=== PATIENT | male | born 1975 | race Caucasian/White ===

== ENCOUNTER 2017-02-05 09:03 | Emergency (ER) | payer OTHER ==
[~2017-02-05] VITALS: Ht 165.1 cm; Wt 66.0 kg
[~2017-02-05 09:03] MED LIST: DILA100C PO
[2017-02-05 09:08] VITALS: BP 178/92; PULSE 101; RESP 16; TEMP 97.8; O2SAT 95
[2017-02-05] MEDS ORDERED: KEPP10002 PO (09:16)
[2017-02-05] MEDS ORDERED: DILA100C PO (09:16)
[2017-02-05 09:17] VITALS: BP 171/92; PULSE 108; RESP 15; O2SAT 94
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
[2017-02-05] MEDS ORDERED: SODIUM CHLORIDE 0.9% FLUSH 10 ML FLUSH IVF PRN (09:30)
[2017-02-05 09:34] VITALS: O2SAT 98
[2017-02-05 10:09] LABS: AUTOMATED NEUTROPHIL # 4.1 TH/MM3 (1.8-7.7); BASOPHIL % 0.7 % (0.0-2.0); EOSINOPHIL # 0.1 TH/MM3 (0-0.4); EOSINOPHIL % 1.8 % (0.0-4.0); HEMATOCRIT 50.5 % (39.0-51.0); HEMO FLAGS DIFF FINAL; LYMPH % 36.8 % (9.0-44.0); LYMPHOCYTE # 2.8 TH/MM3 (1.0-4.8); MEAN CELL VOLUME 91.1 FL (80.0-100.0); MEAN CORPUSCULAR HEMOGLOBIN 31.5 PG (27.0-34.0); MEAN CORPUSCULAR HGB CONC 34.5 % (32.0-36.0); MONO % 6.9 % (0.0-8.0); NEUT % 53.8 % (16.0-70.0); PLATELET COUNT 277 TH/MM3 (150-450); RED BLOOD COUNT 5.54 MIL/MM3 (4.50-5.90); RED CELL DISTRIBUTION WIDTH 12.5 % (11.6-17.2); WHITE BLOOD COUNT 7.6 TH/MM3 (4.0-11.0)
[2017-02-05 10:17] LABS: AMPHETAMINE, URINE NEG (NEG); BARBITURATES, URINE NEG (NEG); COCAINE, URINE NEG (NEG)
[2017-02-05 10:29] LABS: ALT (GPT) 41 U/L (12-78); ANION GAP 20 MEQ/L (5-15); AST (GOT) 19 U/L (15-37); BICARBONATE 14.5 MEQ/L (21.0-32.0); BLOOD UREA NITROGEN 25 MG/DL (7-18); CHLORIDE 102 MEQ/L (98-107); GLOMERULAR FILTRATION RATE 47 ML/MIN (>89); POTASSIUM 3.4 MEQ/L (3.5-5.1); SODIUM (NA) 136 MEQ/L (136-145)
[2017-02-05 10:32] LABS: ALKALINE PHOSPHATASE 73 U/L (45-117); TOTAL BILIRUBIN ADULT 0.7 MG/DL (0.2-1.0)
--- NOTE | 2017-02-06 11:51 | EKG ---
Date Performed: 02/05/2017 Time Performed: 09:27:13 PTAGE: 41 years EKG: SINUS TACHYCARDIA ABNORMAL RHYTHM ECG NO PREVIOUS TRACING DOCTOR: Zeb King Interpretating Date/Time 02/06/2017 11:48:29
[2017-02-06 15:05] LABS: LEVETIRACETAM 4.8 mcg/mL (12.0 - 46.0)
== END 2017-02-05 11:31 | disposition home or self-care (01) ==
LOC: NEPE 09:03
DX: R56.9 Unspecified convulsions (principal); R00.0 Tachycardia, unspecified; R94.31 Abnormal electrocardiogram [ECG] [EKG]; Z79.899 Other long term (current) drug therapy
CPT/HCPCS: 80053; 80175; 80177; 80307; 85025; 93005; 99284